=== PATIENT | male | born 1985 | race Caucasian/White ===

== ENCOUNTER 2016-12-27 | Emergency (ER) | payer MEDICAID ==
--- NOTE | 2016-12-27 06:55 | ER ---
ADMIT: 12/27/2016 RM/LOC: ER [facility] MR#: [id number] [address] [address] [place] [address] Emergency Room Report SEX: M AGE: 31 : 1985 DATE: 12/27/2016 TIME: 0000 hours. Please refer to my T-sheet for complete H and P. HISTORY OF PRESENT ILLNESS: Briefly, the patient comes in with left great toe swelling and painful for 24 hours. He does not know what happened to it, which is odd. Says it hurts to walk. PHYSICAL EXAMINATION: VITAL SIGNS: Stable. EXTREMITIES: His left great toe has a cellulitis on the top. It is warm and tender. NEUROVASCULAR: Intact distally. He has a couple blisters that may have been inciting event. EMERGENCY DEPARTMENT COURSE: I gave him Keflex and send him on Bactrim. He is ready for discharge. ASSESSMENT: Left great toe cellulitis. PLAN: Keflex, Bactrim. Return if worse. Keep clean and dry. Follow up with Dr. Saavedra. Zen Gayle MD/ sanket JOB #: [id number] CC: Zen Gayle MD, Attending Physician Brannon Saavedra MD, Family Physician
== END 2016-12-27 01:40 | disposition home or self-care (01) ==
LOC: ER
DX: L03.032 Cellulitis of left toe (principal); F17.210 Nicotine dependence, cigarettes, uncomplicated